=== PATIENT | female | born 1985 | race Caucasian/White ===

== ENCOUNTER 2016-07-19 09:27 | Emergency (ER) | payer SELFPAY ==
[2016-07-19 11:30] LABS: BASOPHILS 0.3 % (0.0-2.0); EOSINOPHILS 1.5 % (0-7); HEMATOCRIT 42.5 % (36.0-48.0); HEMOGLOBIN 14.4 g/dL (12-16); IMMATURE GRANULOCYTES 0.2 % (0-5); MCH 31.8 pg (26.0-34.0); MCHC 33.9 g/dL (31.0-37.0); MCV 93.8 fL (80.0-100.0); MEAN PLATELET VOLUME 10.5 fL (7.4-10.4); MONOCYTES 5.2 % (2-11); NEUTROPHILS 58.8 % (40-80); PLATELET COUNT 192 10x3/uL (130-400); RBC 4.53 10x6/uL (4.00-5.40); RDW 12.9 % (11.5-14.5); WBC 6.6 10x3/uL (4.8-10.8)
[2016-07-19 11:35] LABS: CALC OSMOLALITY 279 mosm/kg (275-300); CALCIUM 8.6 mg/dL (8.5-10.1); CHLORIDE - SERUM 108 mmol/L (98-107); CREATININE - SERUM 0.6 mg/dL (0.6-1.3); GLUCOSE 96 mg/dL (74-106); POTASSIUM - SERUM 3.9 mmol/L (3.5-5.1); SODIUM 141 mmol/L (136-145); UREA NITROGEN 10 mg/dL (7-18); eGFR NON AFRICAN AMERICAN > 90 mL/min (90-120)
== END 2016-07-19 12:36 | disposition home or self-care (01) ==
LOC: D.ER 09:27
PROVIDERS: Nurse Practitioner Acute Care
DX: B34.9 Viral infection, unspecified (principal); F17.200 Nicotine dependence, unspecified, uncomplicated; F31.9 Bipolar disorder, unspecified

== ENCOUNTER 2017-11-08 12:25 | Emergency (ER) | payer MEDICAID ==
[2017-11-08 13:39] LABS: HCG SERUM NEGATIVE (NEGATIVE)
[2017-11-08 13:44] LABS: ALBUMIN 3.7 g/dL (3.4-5.0); ALKALINE PHOSPHATASE 89 U/L (46-116); ALT (SGPT) 20 U/L (10-68); CALC OSMOLALITY 275 mosm/kg (275-300); CARBON DIOXIDE 24.9 mmol/L (21.0-32.0); CHLORIDE - SERUM 107 mmol/L (98-107); CREATININE - SERUM 0.7 mg/dL (0.6-1.3); GLUCOSE 116 mg/dL (74-106); POTASSIUM - SERUM 4.6 mmol/L (3.5-5.1); PROTEIN - SERUM 7.3 g/dL (6.4-8.2); SODIUM 139 mmol/L (136-145); UREA NITROGEN 4 mg/dL (7-18); eGFR NON AFRICAN AMERICAN > 90 mL/min (90-120)
[2017-11-08 13:49] LABS: BASOPHILS 0.4 % (0-2); EOSINOPHILS 1.6 % (0-7); HEMATOCRIT 47.6 % (36.0-48.0); HEMOGLOBIN 16.3 g/dL (12-16); IMMATURE GRANULOCYTES 0.1 % (0-5); LYMPHOCYTES 26.4 % (15-50); MCH 32.7 pg (26.0-34.0); MCHC 34.2 g/dL (31.0-37.0); MCV 95.4 fL (80.0-100.0); MEAN PLATELET VOLUME 11.1 fL (7.4-10.4); MONOCYTES 3.9 % (2-11); NEUTROPHILS 67.6 % (40-80); PLATELET COUNT 213 10x3/uL (130-400); RBC 4.99 10x6/uL (4.00-5.40); RDW 13.3 % (11.5-14.5); WBC 7.6 10x3/uL (4.8-10.8)
[2017-11-08 14:30] LABS: APPEARANCE HAZY (CLEAR); BACTERIA MODERATE /hpf (NONE SEEN); BILIRUBIN NEGATIVE (NEGATIVE); COLOR YELLOW (YELLOW); EPITHELIAL CELLS 0-5 /hpf (0-5); GLUCOSE NEGATIVE (NEGATIVE); KETONE NEGATIVE (NEGATIVE); MUCUS <1+ /lpf (NONE SEEN); NITRITE NEGATIVE (NEGATIVE); PROTEIN NEGATIVE (NEGATIVE); RED CELLS - URINE 0-5 /hpf (0-5); SPECIFIC GRAVITY 1.005 (1.005-1.020); UROBILINOGEN NORMAL (NORMAL); WHITE CELLS - URINE 25-50 /hpf (0-5)
== END 2017-11-08 17:07 | disposition home or self-care (01) ==
LOC: D.ER 12:25
PROVIDERS: Family Medicine
DX: N39.0 Urinary tract infection, site not specified (principal)

== ENCOUNTER → 2018-01-18 09:37 | Outpatient (CLI) | payer OTHER | END | disposition home or self-care (01) | LOC: D.RAD 09:37 | DX: M25.512 Pain in left shoulder (principal) ==

== ENCOUNTER 2018-08-13 06:55 | Inpatient (IN) | payer OTHER ==
[2018-08-10 10:25] LABS: BASOPHILS 0.6 % (0-2); HEMATOCRIT 42.1 % (36.0-48.0); HEMOGLOBIN 14.4 g/dL (12-16); IMMATURE GRANULOCYTES 0.2 % (0-5); LYMPHOCYTES 39.7 % (15-50); MCH 32.7 pg (26.0-34.0); MCHC 34.2 g/dL (31.0-37.0); MCV 95.7 fL (80.0-100.0); MEAN PLATELET VOLUME 9.9 fL (7.4-10.4); MONOCYTES 6.7 % (2-11); NEUTROPHILS 49.8 % (40-80); PLATELET COUNT 216 10x3/uL (130-400); RDW 12.8 % (11.5-14.5); WBC 5.4 10x3/uL (4.8-10.8)
[2018-08-10 10:38] LABS: CALC OSMOLALITY 281 mosm/kg (275-300); CALCIUM 8.1 mg/dL (8.5-10.1); CARBON DIOXIDE 25.3 mmol/L (21.0-32.0); CHLORIDE - SERUM 107 mmol/L (98-107); CREATININE - SERUM 0.6 mg/dL (0.6-1.3); GLUCOSE 92 mg/dL (74-106); POTASSIUM - SERUM 4.1 mmol/L (3.5-5.1); SODIUM 142 mmol/L (136-145); UREA NITROGEN 9 mg/dL (7-18); eGFR NON AFRICAN AMERICAN > 90 mL/min (90-120)
[2018-08-13] VITALS (16 sets, daily range): BP systolic 109–151; BP diastolic 59–85; Ht 172.7 cm; Wt 80.5 kg
[~2018-08-13] VITALS: Ht 172.7 cm; Wt 80.5 kg
[~2018-08-13 06:55] MED LIST: CYCLOBENZAPRINE10 MG PO; HYDROCODON-ACE1 EAC7 PO; IBUPROFEN800 MG PO; LEXAPRO20 MG PO; MINIPRESS1 MG PO; TEGRETOL200 MG PO; TOFRANIL50 MG PO
[2018-08-13 07:45] LABS: HCG URINE NEGATIVE (NEGATIVE)
--- NOTE | 2018-08-13 12:21 | OP ---
PATIENT NAME: PEARL ROBERTS MEDICAL RECORD: [id number] :87 LOCATION:[facility][id number] ADMISSION DATE: SURGEON: ARTUR JARRELL MD DATE OF OPERATION: 08/13/2018 PREOPERATIVE DIAGNOSES: 1. Dysmenorrhea. 2. Dyspareunia. 3. Dysfunctional uterine bleeding. POSTOPERATIVE DIAGNOSES: 1. Dysmenorrhea. 2. Dyspareunia. 3. Dysfunctional uterine bleeding. 4. Pelvic adhesive disease. PROCEDURES: 1. Diagnostic laparoscopy. 2. Exploratory laparotomy. 3. Lysis of adhesions. 4. Subtotal hysterectomy. 5. Bilateral salpingectomy. 6. Left oophorectomy. SURGEON: Artur Jarrell MD [employer] BACK TENDER: Tonny Wyatt MD ANESTHESIOLOGIST: Dr. Rob. ANESTHESIA: General. FINDINGS: At the time of diagnostic laparoscopy, dense adhesions of the omentum or fat were encountered in the midline. The bladder was adhesed to the anterior abdominal wall and to the right. This obscures visualization of the uterus. At the time of laparotomy after dissection of adhesions, the uterus and tubes were unremarkable with the exception being interrupted. Both ovaries were unremarkable. SPECIMENS: 1. Uterus. 2. Bilateral tubes. 3. Left ovary. SPECIMEN DISPOSITION: Pathology. ESTIMATED BLOOD LOOS: 100 cc. FLUIDS: 800 cc lactated Ringer's. URINE OUTPUT: 150 cc of clear urine. COMPLICATIONS: None. DRAIN: Stevens to gravity. OPERATIVE REPORT [id number] PEARL ROBERTS INDICATIONS: The patient is a 32-year-old female with tubal ligation for control, who reports painful periods and painful intimacy. The patient also has regular heavy periods that are negative and impact on her quality of life. The patient has tried conservative management without resolution of her symptoms. The patient is consented for diagnostic laparoscopy, laparoscopic subtotal hysterectomy, bilateral salpingectomy with oophorectomy and any indicated procedure. DESCRIPTION OF PROCEDURE: After informed consent was assured, the patient was taken to the operating room where anesthetic was obtained. The patient was prepped and draped in the usual sterile fashion. An incision was made in the umbilicus. A trocar was inserted. Pneumoperitoneum was developed. Immediately dense adhesions were encountered and obscured adequate visualization of the pelvis in the right lower quadrant. A window was available and a left lower quadrant port was placed to investigate the extent of adhesions. Adhesions were noted to be below the umbilicus all the way to the deep pelvis. Right side of the bladder was visualized, adhesed to the abdominal wall and above the uterus. At this point, the decision was made to perform an open procedure. Trocars were removed as the pneumoperitoneum was released. A Pfannenstiel incision was made. Rectus bellies were in the midline and the peritoneum was entered sharply. Bovie cautery and Metzenbaum scissors were used to dissect the adhesions down. The bladder was mobilized from its anterior adhesion site. Uterus was now identified, pulled to the incision and Mary Kate clamps were placed over both cornual regions. The left ovary was elevated and round ligament was entered and a window developed below the uterine ovarian ligament. A Mary Kate clamp was now placed behind the ovary through this opening. A second clamp was passed through here and the ovary was removed. A free-stitch and then a coob-gai-ocr stitch used to obtain hemostasis at this pedicle. Dissection continues of the connective tissue to the level of the internal os. The vessels were skeletonized and clamped with Mary Kate clamp. Attention was now directed to the right where the round ligament was entered. A window was made in the broad ligament and the Mary Kate clamp over the coronal region was passed through this. The dissection was carried down and the bladder flap was fully developed. The vessels of the right side were skeletonized, grasped with a Mary Kate-Lucile clamp and a straight clamp placed for backbleeding. The pedicle was mobilized with scissors and a Mary Kate stitch applied for hemostasis. A Lucile clamp was used to take a small portion of the cardinal ligament. After this had been performed, it was mobilized with scalpel and then tied. Attention was now directed to the left side where the left vascular bundle was mobilized with scissors and a stitch applied for hemostasis. Uterus was now removed starting with Ferdinand scissors and concluding with Bovie cautery. The endocervical canal was cauterized. Bleeding was encountered on the left, vascular pedicle and a stitch applied for hemostasis. The endocervical canal of the cervical stump has now been cauterized and the stump was closed with interrupted Vicryl stitches. After this had been performed, the pelvis was irrigated. Attention was directed to the right side where that right tube was removed. The medial pedicle of the right ovary was now stick tied to the round ligament. Interceed was placed in the deep pelvis. Sponge count was correct times 1 as the fascia was closed with running Vicryl stitch. Subcutaneous tissue was irrigated. Bleeding vessels cauterized and it was reapproximated with plain gut. Sponge count was correct times 2 as the skin was closed with a subcuticular stitch. The port sites were closed with chromic. Dermabond was placed over the port sites and Steri-Strips and a pressure dressing was placed over the abdominal OPERATIVE REPORT [id number] PEARL ROBERTS incision. TRANSINT:[id number] Voice Confirmation ID: [id number] DOCUMENT ID: [id number] ARTUR JARRELL MD at 1221 CC: [id number] DICTATION DATE: 08/13/18 0939 COMMERCIAL LENDER: 08/13/18 1157 [facility] [address] [place] [address]
[2018-08-14 00:42] VITALS: BP 112/71
[2018-08-14 04:57] VITALS: BP 99/60
[2018-08-14 06:35] LABS: BASOPHILS 0.1 % (0-2); EOSINOPHILS 0.2 % (0-7); HEMATOCRIT 41.3 % (36.0-48.0); HEMOGLOBIN 13.7 g/dL (12-16); IMMATURE GRANULOCYTES 0.2 % (0-5); LYMPHOCYTES 28.9 % (15-50); MCH 32.4 pg (26.0-34.0); MCHC 33.2 g/dL (31.0-37.0); MCV 97.6 fL (80.0-100.0); MEAN PLATELET VOLUME 10.2 fL (7.4-10.4); MONOCYTES 9.4 % (2-11); NEUTROPHILS 61.2 % (40-80); PLATELET COUNT 202 10x3/uL (130-400); RBC 4.23 10x6/uL (4.00-5.40); WBC 9.3 10x3/uL (4.8-10.8)
[2018-08-14 07:35] VITALS: BP 114/68
[2018-08-14 17:00] VITALS: BP 115/73
[2018-08-14 20:02] VITALS: BP 112/65
[2018-08-14 22:52] VITALS: BP 104/65
[2018-08-15 03:45] VITALS: BP 113/70
[2018-08-15 07:41] VITALS: BP 101/66
[2018-08-15] MEDS ORDERED: NEURONTIN 300300 MG PO (10:33)
[2018-08-15] MEDS ORDERED: PERCOCET 7.5/321 TAB PO (10:33)
[2018-08-15] MEDS ORDERED: IBUPROFEN800 MG PO (10:34)
== END 2018-08-15 11:38 | disposition home or self-care (01) | DRG 743 ==
LOC: D.LD 06:55 → D.OPS 06:55 → D.PAN 08:00 → D.OPS 08:45 → D.LD 10:08 → D.OPS 10:09 → D.LD 08-15 11:38
PROVIDERS: ADMIT Obstetrics & Gynecology; ATTEND Obstetrics & Gynecology
PROC: 0UT90ZZ Resection of Uterus, Open Approach (ICD-10-PCS; principal; 2018-08-13 08:45)
PROC: 0UB10ZZ Excision of Left Ovary, Open Approach (ICD-10-PCS; 2018-08-13 08:45)
PROC: 0UT70ZZ Resection of Bilateral Fallopian Tubes, Open Approach (ICD-10-PCS; 2018-08-13 08:45)
DX: N94.6 Dysmenorrhea, unspecified (principal); N93.8 Other specified abnormal uterine and vaginal bleeding; N73.6 Female pelvic peritoneal adhesions (postinfective)